=== PATIENT | male | born 1955 | race American Indian/Alaskan Native ===

== ENCOUNTER 2017-09-14 20:23 | Emergency (ER) | payer MEDICAID, OTHER ==
[2017-09-14 21:03] LABS: ANION GAP 10.9; CHLORIDE,CL 109 mmol/L (101-111); SODIUM,NA 140 mmol/L (135-145)
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
[2017-09-14] MEDS: Acetaminophen 325 MG Tab PO ONE (21:29)
== END 2017-09-14 21:43 | disposition home or self-care (01) ==
LOC: DL.ED 20:23
DX: S42.035A Nondisplaced fracture of lateral end of left clavicle, initial encounter for closed fracture (principal); F17.210 Nicotine dependence, cigarettes, uncomplicated; Z88.6 Allergy status to analgesic agent; Z79.899 Other long term (current) drug therapy; V19.3XXA Pedal cyclist (driver) (passenger) injured in unspecified nontraffic accident, initial encounter
CPT/HCPCS: 36415; 73030; 80053; 85025; 99284; A9270; G0480

== ENCOUNTER 2019-07-22 08:50 | Emergency (ER) | payer MEDICAID, OTHER ==
[2019-07-22] MEDS ORDERED: Sodium Chloride 0.9% 10 ML Syringe FLUSH PRN (10:13)
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
[2019-07-22 10:36] LABS: ANION GAP 12.8 mEq/L (7-13); CHLORIDE,CL 103 mmol/L (98-107); SODIUM,NA 141 mmol/L (136-145)
[2019-07-22] MEDS ORDERED: Silver Sulfadiazine 1% Crm 50 GM Tube TOP ONE (11:37)
== END 2019-07-22 12:02 | disposition home or self-care (01) ==
LOC: DL.ED 08:50
DX: S71.102A Unspecified open wound, left thigh, initial encounter (principal); I10 Essential (primary) hypertension; R56.9 Unspecified convulsions; F32.9 Major depressive disorder, single episode, unspecified; Z79.899 Other long term (current) drug therapy; W34.00XA Accidental discharge from unspecified firearms or gun, initial encounter
CPT/HCPCS: 36415; 80053; 83605; 85025; 86140; 87040; 87070; 87077; 87186; 99283; A9270-GY

== ENCOUNTER 2020-03-11 12:43 | Observation (INO) | payer MEDICAID, OTHER ==
[2020-03-11 13:46] LABS: ANION GAP 12.8 mEq/L (7-13); CHLORIDE,CL 100 mmol/L (98-107); SODIUM,NA 137 mmol/L (136-145)
--- NOTE | 2020-03-11 13:56 | CT ---
PROCEDURE INFORMATION: Exam: CT Head Without Contrast Exam date and time: 03/11/2020 1:40 PM Age: 64 years old Clinical indication: Walking, difficulty; Additional info: Frequent falls, head injury TECHNIQUE: Imaging protocol: Computed tomography of the head without contrast. Radiation optimization: All CT scans at this facility use at least one of these dose optimization techniques: automated exposure control; mA and/or kV adjustment per patient size (includes targeted exams where dose is matched to clinical indication); or iterative reconstruction. COMPARISON: CT HEAD 07/21/2009 1:04 AM FINDINGS: Brain: A focal hematoma is present within the right temporal region. It measures 3.3 x 1.5 1.3 cm. This corresponds to a volume of approximately 5 mL. This is in an area encephalomalacia a likely from prior surgery. Does not appear to be parenchymal in location. No additional hemorrhage is identified. No acute infarct present. Extensive postsurgical changes are present in the right temporal and parietal region. Cerebral ventricles: The ventricles and sulci are moderately prominent consistent with global volume loss/atrophy. High density involve material is present within the region of the sagittal sinus off midline toward the right. Bones/joints: Unremarkable. No acute fracture. Paranasal sinuses: Visualized sinuses are unremarkable. No fluid levels. Mastoid air cells: Visualized mastoid air cells are well aerated. Soft tissues: Unremarkable. IMPRESSION: Large area of encephalomalacia within the right temporoparietal region compatible with prior surgery. An acute hematoma is present within the area of encephalomalacia of the right temporal lobe as described. This is likely traumatic. This does not appear to be within the brain parenchyma but rather within the area of encephalomalacia of the postsurgical cavity.
[2020-03-11] MEDS ORDERED: Clindamycin HCl 150 MG Cap PO ONE (14:06)
[2020-03-11] MEDS ORDERED: Piperacillin/Tazobactam 3.375 GM in Sodium Chloride 0.9% 100 ML IV ONE (14:42)
[2020-03-11] MEDS ORDERED: Diphtheria,Pertussis(Acell),Tetanus Vaccine 0.5 ML Syringe IM ONE (14:42)
[2020-03-11] MEDS ORDERED: Sodium Chloride 0.9% 10 ML Syringe FLUSH PRN (14:42)
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
[2020-03-11] MEDS ORDERED: Ondansetron 4 MG/2 ML SDV IVPUSH PRN (15:32)
[2020-03-11] MEDS ORDERED: Docusate Sodium 100 MG Cap PO PRN (15:32)
[2020-03-11] MEDS ORDERED: Magnesium Hydroxide 400 MG/5 ML Susp 30 ML Cup PO PRN (15:32)
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
[2020-03-11] MEDS: Furosemide 40 MG Tab PO SCH (17:32)
[2020-03-11] MEDS: Heparin Sodium 5,000 Units/ML Vial SUBCUT SCH (20:52)
[2020-03-11] MEDS ORDERED: RISPERIDONE 2 MG PO SCH (21:00)
[2020-03-12] MEDS: Acetaminophen 325 MG Tab PO PRN (08:33)
[2020-03-12] MEDS: Furosemide 40 MG Tab PO SCH (08:33)
[2020-03-12] MEDS: Heparin Sodium 5,000 Units/ML Vial SUBCUT SCH (08:35)
[2020-03-12] MEDS ORDERED: Escitalopram 10 MG Tab PO SCH (09:00)
--- NOTE | 2020-03-12 10:18 | PCM.PN ---
- General Info Date of Service: 03/12/20 Admission Dx/Problem (Free Text): Admission Diagnosis/Problem Admission Diagnosis/Problem Falls Subjective Update: Ej Toro is a 64-year-old male with past medical history significant for questionable seizure disorder, depression, recurrent fall, TBI who presented to the ED via EMS for evaluation of recurrent fall. Family was actually concerned about the wellbeing of patient and called 911 to come get patient to bring him to the ED for evaluation. CT brain without contrast showed large area of encephalomalacia within the right temporoparietal region compatible with prior surgery. An acute hematoma is present within the area of encephalomalacia of the right temporal lobe as described. This is likely traumatic. This does not appear to be within the brain parenchyma but rather within the area of encephalomalacia of the postsurgical cavity. Neurosurgeon on-call at [facility] was contacted who recommended no surgical intervention. Patient was admitted for physical therapy and Occupational Therapy and also placement SNF Functional Status: Reports: Pain Controlled - Review of Systems General: Reports: No Symptoms HEENT: Reports: No Symptoms Pulmonary: Reports: No Symptoms Cardiovascular: Reports: No Symptoms Gastrointestinal: Reports: No Symptoms Genitourinary: Reports: No Symptoms Musculoskeletal: Reports: No Symptoms Skin: Reports: No Symptoms Neurological: Reports: No Symptoms Psychiatric: Reports: No Symptoms - Patient Data Vitals - Most Recent: Last Vital Signs Temp 98.8 F 03/12/20 07:47 Pulse 80 03/12/20 07:47 Resp 16 03/12/20 07:47 BP 98/64 03/12/20 07:47 Pulse Ox 100 03/12/20 07:47 Weight - Most Recent: 141 lb 8 oz I&O - Last 24 Hours: Intake & Output 03/11/20 03/12/20 03/12/20 22:59 06:59 14:59 Intake Total 50 150 Output Total 850 Balance 50 -700 Lab Results Last 24 Hours: Laboratory Results - last 24 hr 03/11/20 03/11/20 03/11/20 Range/Units 13:12 13:12 13:12 WBC 6.2 (5.0-10.0) 10^3/uL RBC 3.85 L (4.6-6.2) 10^6/uL Hgb 12.5 L D (14.0-18.0) g/dL Hct 37.2 L (40.0-54.0) % MCV 96.6 D (80-100) fL MCH 32.5 (27.0-34.0) pg MCHC 33.6 (33.0-35.0) g/dL Plt Count 189 (150-450) 10^3/uL Neut % (Auto) 52.0 (42.2-75.2) % Lymph % (Auto) 30.7 (20.5-50.1) % [place] % (Auto) 13.0 H (2-8) % Eos % (Auto) 4.1 H (1.0-3.0) % Baso % (Auto) 0.2 (0.0-1.0) % Sodium 137 (136-145) mmol/L Potassium 3.8 (3.5-5.1) mmol/L Chloride 100 (98-107) mmol/L Carbon Dioxide 28 (21-32) mmol/L Anion Gap 12.8 (7-13) mEq/L BUN 14 (7-18) mg/dL Creatinine 0.96 (0.70-1.30) mg/dL Est Cr Clr Drug Dosing 72.74 mL/min Estimated GFR (MDRD) > 60 BUN/Creatinine Ratio 14.6 (No establ ref range) Glucose 89 (74-99) mg/dL Calcium 8.7 (8.5-10.1) mg/dL Phosphorus 3.0 (2.6-4.7) mg/dL Magnesium 2.1 (1.8-2.4) mg/dL Total Bilirubin 0.5 (0.2-1.0) mg/dL AST 6 L (15-37) U/L ALT 9 L (16-63) U/L Alkaline Phosphatase 56 (46-116) U/L Total Protein 7.4 (6.4-8.2) g/dL Albumin 3.2 L (3.4-5.0) g/dL Globulin 4.2 Albumin/Globulin Ratio 0.76 TSH, Ultra Sensitive 2.70 (0.36-3.74) uIU/mL Urine Color (YELLOW) Urine Appearance (CLEAR) Urine pH (5.0-9.0) Ur Specific [place] (1.005-1.030) Urine Protein (NEGATIVE) Urine Glucose (UA) (NEGATIVE) Urine Ketones (NEGATIVE) Urine Occult Blood (NEGATIVE) Urine Nitrite (NEGATIVE) Urine Bilirubin (NEGATIVE) Urine Urobilinogen (0.2-1.0) mg/dL Ur Leukocyte Esterase (NEGATIVE) Urine RBC /HPF Urine WBC (0-5/HPF) /HPF Ur Epithelial Cells (NOT SEEN) /HPF Urine Bacteria (0-FEW/HPF) /HPF Urine Mucus (NOT SEEN) /LPF Urine Opiates Screen (NEGATIVE) Ur Oxycodone Screen (NEGATIVE) Urine Methadone Screen (NEGATIVE) Ur Barbiturates Screen (NEGATIVE) U Tricyclic Antidepress (NEGATIVE) Ur Phencyclidine Scrn (NEGATIVE) Ur Amphetamine Screen (NEGATIVE) U Methamphetamines Scrn (NEGATIVE) Urine MDMA Screen (NEGATIVE) U Benzodiazepines Scrn (NEGATIVE) Urine Cocaine Screen (NEGATIVE) U Marijuana (THC) Screen (NEGATIVE) Ethyl Alcohol < 3 (0) mg/dL SARS-CoV-2 RNA (CHANEL) (NEGATIVE) 03/11/20 03/11/20 03/11/20 Range/Units 13:39 13:39 15:20 WBC (5.0-10.0) 10^3/uL RBC (4.6-6.2) 10^6/uL Hgb (14.0-18.0) g/dL Hct (40.0-54.0) % MCV (80-100) fL MCH (27.0-34.0) pg MCHC (33.0-35.0) g/dL Plt Count (150-450) 10^3/uL Neut % (Auto) (42.2-75.2) % Lymph % (Auto) (20.5-50.1) % [place] % (Auto) (2-8) % Eos % (Auto) (1.0-3.0) % Baso % (Auto) (0.0-1.0) % Sodium (136-145) mmol/L Potassium (3.5-5.1) mmol/L Chloride (98-107) mmol/L Carbon Dioxide (21-32) mmol/L Anion Gap (7-13) mEq/L BUN (7-18) mg/dL Creatinine (0.70-1.30) mg/dL Est Cr Clr Drug Dosing mL/min Estimated GFR (MDRD) BUN/Creatinine Ratio (No establ ref range) Glucose (74-99) mg/dL Calcium (8.5-10.1) mg/dL Phosphorus (2.6-4.7) mg/dL Magnesium (1.8-2.4) mg/dL Total Bilirubin (0.2-1.0) mg/dL AST (15-37) U/L ALT (16-63) U/L Alkaline Phosphatase (46-116) U/L Total Protein (6.4-8.2) g/dL Albumin (3.4-5.0) g/dL Globulin Albumin/Globulin Ratio TSH, Ultra Sensitive (0.36-3.74) uIU/mL Urine Color [place] (YELLOW) Urine Appearance Clear (CLEAR) Urine pH 6.0 (5.0-9.0) Ur Specific [place] 1.025 (1.005-1.030) Urine Protein Trace H (NEGATIVE) Urine Glucose (UA) Negative (NEGATIVE) Urine Ketones 15 H (NEGATIVE) Urine Occult Blood Negative (NEGATIVE) Urine Nitrite Negative (NEGATIVE) Urine Bilirubin Small H (NEGATIVE) Urine Urobilinogen 4.0 H (0.2-1.0) mg/dL Ur Leukocyte Esterase Negative (NEGATIVE) Urine RBC 0-5 /HPF Urine WBC 0-5 (0-5/HPF) /HPF Ur Epithelial Cells Few (NOT SEEN) /HPF Urine Bacteria Not seen (0-FEW/HPF) /HPF Urine Mucus Occasional (NOT SEEN) /LPF Urine Opiates Screen Negative (NEGATIVE) Ur Oxycodone Screen Negative (NEGATIVE) Urine Methadone Screen Negative (NEGATIVE) Ur Barbiturates Screen Negative (NEGATIVE) U Tricyclic Antidepress Negative (NEGATIVE) Ur Phencyclidine Scrn Negative (NEGATIVE) Ur Amphetamine Screen Negative (NEGATIVE) U Methamphetamines Scrn Negative (NEGATIVE) Urine MDMA Screen Negative (NEGATIVE) U Benzodiazepines Scrn Negative (NEGATIVE) Urine Cocaine Screen Negative (NEGATIVE) U Marijuana (THC) Screen Positive H (NEGATIVE) Ethyl Alcohol (0) mg/dL SARS-CoV-2 RNA (CHANEL) Negative (NEGATIVE) Med Orders - Current: Current Medications Acetaminophen (Tylenol) 650 mg PO Q4H PRN PRN Reason: Pain (Mild 1-3)/fever Last Admin: 03/12/20 08:33 Dose: 650 mg Documented by: Docusate Sodium (Colace) 100 mg PO BID PRN PRN Reason: Constipation Escitalopram Oxalate (Lexapro) 10 mg PO DAILY KEVON Furosemide (Lasix) 40 mg PO DAILY REPLACED BY [facility] Last Admin: 03/12/20 08:33 Dose: 40 mg Documented by: Heparin Sodium (Porcine) (Heparin Sodium) 5,000 units SUBCUT Q12HR REPLACED BY [facility] Last Admin: 03/12/20 08:35 Dose: 5,000 units Documented by: Magnesium Hydroxide (Milk Of Magnesia) 30 ml PO Q12H PRN PRN Reason: Constipation Non-Formulary Medication (Divalproex Sodium) 500 mg PO BEDTIME KEVON Non-Formulary Medication (Risperidone [Risperidone]) 2 mg PO BEDTIME REPLACED BY [facility] Ondansetron HCl (Zofran) 4 mg IVPUSH Q6H PRN PRN Reason: Nausea/Vomiting Sodium Chloride (Saline Flush) 10 ml FLUSH ASDIRECTED PRN PRN Reason: Keep Vein Open Last Admin: 03/11/20 14:56 Dose: 10 ml Documented by: Discontinued Medications Clindamycin HCl (Cleocin) 300 mg PO ONETIME ONE Stop: 03/11/20 14:07 Last Admin: 03/11/20 14:14 Dose: 300 mg Documented by: Diphtheria/Tetanus/Acell Pertussis (Boostrix) 0.5 ml IM .ONCE ONE Stop: 03/11/20 14:43 Last Admin: 03/11/20 14:54 Dose: 0.5 ml Documented by: Piperacillin Sod/Tazobactam (Sod 3.375 gm/ Sodium Chloride) 100 mls @ 200 mls/hr IV ONETIME ONE Stop: 03/11/20 15:11 Last Admin: 03/11/20 14:54 Dose: 200 mls/hr Documented by: - Exam Quality Assessment: DVT Prophylaxis General: Alert, Oriented HEENT: Pupils Equal, Pupils Reactive, EOMI, Mucous Membr. Moist/[place] Neck: Supple Lungs: Clear to Auscultation, Normal Respiratory Effort Cardiovascular: Regular Rate, Regular Rhythm GI/Abdominal Exam: Normal Bowel Sounds, Soft, Non-Tender, No Organomegaly, No Distention, No Abnormal Bruit, No Mass, Pelvis Stable (Male) Exam: No Hernia, Normal Inspection, Normal Prostate, Circumcised Back Exam: Normal Inspection, Full Range of Motion Extremities: Normal Inspection, Normal Range of Motion, Non-Tender, No Pedal Edema, Normal Capillary Refill Skin: Warm, Dry, Intact Wound/Incisions: Healing Well Neurological: No New Focal Deficit Psy/Mental Status: Alert, Normal Affect, Normal Mood Sepsis Event Note - Evaluation Sepsis Screening Result: No Definite Risk - Focused Exam Vital Signs: Vital Signs Temp Pulse Resp BP Pulse Ox 03/12/20 07:47 98.8 F 80 16 98/64 100 03/12/20 00:00 97.0 F 68 18 140/73 99 - Problem List & Annotations (1) Bilateral edema of lower extremity SNOMED Code(s): 131222127, [id number], [id number] Code(s): R60.0 - LOCALIZED EDEMA Status: Acute Current Visit: Yes - Problem List Review Problem List Initiated/Reviewed/Updated: Yes - My Orders Last 24 Hours: My Active Orders 03/11/20 15:32 Ambulate [RC] ASDIRECTED Oxygen Therapy [RC] PRN VTE/DVT Education [RC] PER UNIT ROUTINE Vital Signs [RC] 00,04,08,12,16,20 OT Evaluation and Treatment [CONS] Routine PT Evaluation and Treatment [CONS] Routine Acetaminophen [TylenoL] 650 mg PO Q4H PRN Docusate Sodium [Colace] 100 mg PO BID PRN Magnesium Hydroxide [Milk of Magnesia] 30 ml PO Q12H PRN Ondansetron [Zofran] 4 mg IVPUSH Q6H PRN Resuscitation Status Routine 03/11/20 15:33 Intake and Output [RC] QSHIFT Notify Provider Vital Signs [RC] ASDIRECTED 03/11/20 15:38 Admission Diagnosis [ADT] Stat Admission Status [Patient Status] [ADT] Routine 03/11/20 15:51 Precautions [COMM] Routine 03/11/20 16:30 Furosemide [Lasix] 40 mg PO DAILY 03/11/20 Dinner Regular Diet [DIET] 03/11/20 21:00 Divalproex Sodium 500 mg PO BEDTIME Heparin Sodium 5,000 units SUBCUT Q12HR risperiDONE [risperiDONE] 2 mg PO BEDTIME 03/12/20 09:00 Escitalopram [Lexapro] 10 mg PO DAILY - Plan Plan:: #Recurrent falls #Laceration to back of head due to above CT head without contrast: An acute hematoma within the area of encephalomalacia of the right temporal lobe as described. This is likely traumatic. Neurosurgery consulted by ED provider. No intervention needed Fall precautions Physical therapy and Occupational Therapy Social work consult for SNF placement #Seizure disorder no Res continue home medication #Depression Continue home medication #Bilateral leg edema. Etiology not clear Lasix Echo when available #Marijuana use disorder Counseled to quit #General diet #Full code #Disposition: To be determined. Social work consulted
[2020-03-12] MEDS: Clindamycin HCl 150 MG Cap PO SCH ×2 (11:10→21:01)
[2020-03-12] MEDS: Divalproex Sodium Delayed-Release 250 MG Tab.CR PO SCH ×2 (11:11→21:01)
[2020-03-12] MEDS: risperiDONE 1 MG Tab PO SCH (21:01)
[2020-03-13] MEDS: Clindamycin HCl 150 MG Cap PO SCH ×3 (06:02→21:04)
[2020-03-13] MEDS: Furosemide 40 MG Tab PO SCH (08:28)
[2020-03-13] MEDS: Divalproex Sodium Delayed-Release 250 MG Tab.CR PO SCH ×2 (08:28→20:31)
[2020-03-13] MEDS: Docusate Sodium 100 MG Cap PO SCH (08:28)
--- NOTE | 2020-03-13 09:37 | PCM.PN ---
- General Info Date of Service: 03/13/20 Admission Dx/Problem (Free Text): Admission Diagnosis/Problem Admission Diagnosis/Problem Recurrent Falls Subjective Update: Ej Toro is a 64-year-old male with past medical history significant for questionable seizure disorder, depression, recurrent fall, TBI who presented to the ED via EMS for evaluation of recurrent fall. Family was actually concerned about the wellbeing of patient and called 911 to come get patient to bring him to the ED for evaluation. CT brain without contrast showed large area of encephalomalacia within the right temporoparietal region compatible with prior surgery. An acute hematoma is present within the area of encephalomalacia of the right temporal lobe as described. This is likely traumatic. This does not appear to be within the brain parenchyma but rather within the area of encephalomalacia of the postsurgical cavity. Neurosurgeon on-call at [facility] was contacted who recommended no surgical intervention. Patient was admitted for physical therapy and Occupational Therapy and also placement SNF. Patient seen and examined today. Doing okay. No new complaints. Night was uneventful. Patient requires significant assistance to get out of bed. He agrees to be placed at SNF. Social working on placement. Functional Status: Reports: Pain Controlled - Review of Systems General: Reports: No Symptoms HEENT: Reports: No Symptoms Pulmonary: Reports: No Symptoms Cardiovascular: Reports: No Symptoms Gastrointestinal: Reports: No Symptoms Genitourinary: Reports: No Symptoms Musculoskeletal: Reports: No Symptoms Skin: Reports: No Symptoms Neurological: Reports: No Symptoms Psychiatric: Reports: No Symptoms - Patient Data Vitals - Most Recent: Last Vital Signs Temp 98.5 F 03/13/20 08:15 Pulse 86 03/13/20 08:15 Resp 16 03/13/20 08:15 BP 107/68 03/13/20 08:15 Pulse Ox 99 03/13/20 08:15 Weight - Most Recent: 133 lb I&O - Last 24 Hours: Intake & Output 03/12/20 03/13/20 03/13/20 22:59 06:59 14:59 Intake Total 100 100 Output Total 300 475 Balance -200 -375 Med Orders - Current: Current Medications Acetaminophen (Tylenol) 650 mg PO Q4H PRN PRN Reason: Pain (Mild 1-3)/fever Last Admin: 03/12/20 08:33 Dose: 650 mg Documented by: Clindamycin HCl (Cleocin) 600 mg PO Q8HR [facility] Last Admin: 03/13/20 06:02 Dose: 600 mg Documented by: Divalproex Sodium (Divalproex Sodium) 500 mg PO BEDTIME [facility] Last Admin: 03/12/20 21:01 Dose: 500 mg Documented by: Divalproex Sodium (Divalproex Sodium) 1,000 mg PO DAILY [facility] Last Admin: 03/13/20 08:28 Dose: 1,000 mg Documented by: Docusate Sodium (Colace) 100 mg PO DAILY [facility] Last Admin: 03/13/20 08:28 Dose: 100 mg Documented by: Furosemide (Lasix) 40 mg PO DAILY [facility] Last Admin: 03/13/20 08:28 Dose: 40 mg Documented by: Magnesium Hydroxide (Milk Of Magnesia) 30 ml PO Q12H PRN PRN Reason: Constipation Ondansetron HCl (Zofran) 4 mg IVPUSH Q6H PRN PRN Reason: Nausea/Vomiting Polyethylene Glycol (Miralax) 17 gm PO DAILY PRN PRN Reason: Constipation Risperidone (Risperidal) 2 mg PO BEDTIME [facility] Last Admin: 03/12/20 21:01 Dose: 2 mg Documented by: Sodium Chloride (Saline Flush) 10 ml FLUSH ASDIRECTED PRN PRN Reason: Keep Vein Open Last Admin: 03/11/20 14:56 Dose: 10 ml Documented by: Discontinued Medications Clindamycin HCl (Cleocin) 300 mg PO ONETIME ONE Stop: 03/11/20 14:07 Last Admin: 03/11/20 14:14 Dose: 300 mg Documented by: Diphtheria/Tetanus/Acell Pertussis (Boostrix) 0.5 ml IM .ONCE ONE Stop: 03/11/20 14:43 Last Admin: 03/11/20 14:54 Dose: 0.5 ml Documented by: Docusate Sodium (Colace) 100 mg PO BID PRN PRN Reason: Constipation Escitalopram Oxalate (Lexapro) 10 mg PO DAILY [facility] Last Admin: 03/12/20 11:15 Dose: Not Given Documented by: Heparin Sodium (Porcine) (Heparin Sodium) 5,000 units SUBCUT Q12HR [facility] Last Admin: 03/12/20 08:35 Dose: 5,000 units Documented by: Piperacillin Sod/Tazobactam (Sod 3.375 gm/ Sodium Chloride) 100 mls @ 200 mls/hr IV ONETIME ONE Stop: 03/11/20 15:11 Last Admin: 03/11/20 14:54 Dose: 200 mls/hr Documented by: Non-Formulary Medication (Risperidone [Risperidone]) 2 mg PO BEDTIME [facility] Last Admin: 03/12/20 11:15 Dose: Not Given Documented by: - Exam Quality Assessment: DVT Prophylaxis General: Alert, Oriented HEENT: Pupils Equal, Pupils Reactive, EOMI, Mucous Membr. Moist/[place] Neck: Supple Lungs: Clear to Auscultation, Normal Respiratory Effort Cardiovascular: Regular Rate, Regular Rhythm GI/Abdominal Exam: Normal Bowel Sounds, Soft, Non-Tender, No Organomegaly, No Distention, No Abnormal Bruit, No Mass, Pelvis Stable (Male) Exam: No Hernia, Normal Inspection, Normal Prostate, Circumcised Back Exam: Normal Inspection, Full Range of Motion Extremities: Normal Inspection, Normal Range of Motion, Non-Tender, No Pedal Edema, Normal Capillary Refill Skin: Warm, Dry, Intact Wound/Incisions: Healing Well Neurological: No New Focal Deficit Psy/Mental Status: Alert, Normal Affect, Normal Mood Sepsis Event Note - Evaluation Sepsis Screening Result: No Definite Risk - Focused Exam Vital Signs: Vital Signs Temp Pulse Resp BP Pulse Ox 03/13/20 08:15 98.5 F 86 16 107/68 99 03/13/20 03:41 99 F 73 20 102/65 98 03/13/20 01:00 98.6 F 78 20 130/77 100 - Problem List & Annotations (1) Bilateral edema of lower extremity SNOMED Code(s): 972286161, 42439928, 028894766 Code(s): R60.0 - LOCALIZED EDEMA Status: Acute Current Visit: Yes - Problem List Review Problem List Initiated/Reviewed/Updated: Yes - My Orders Last 24 Hours: My Active Orders 03/12/20 10:45 polyethylene glycoL 3350 [MiraLAX] 17 gm PO DAILY PRN 03/12/20 11:00 Divalproex Sodium 1,000 mg PO DAILY clindamycin HCL [Cleocin] 600 mg PO Q8HR 03/12/20 14:26 Anticoagulation Contraindications VTE [AST] Click To Edit 03/12/20 21:00 Divalproex Sodium 500 mg PO BEDTIME risperiDONE [RisperiDAL] 2 mg PO BEDTIME 03/13/20 09:00 Docusate Sodium [Colace] 100 mg PO DAILY - Plan Plan:: #Recurrent falls #Laceration to back of head due to above CT head without contrast: An acute hematoma within the area of encephalomalacia of the right temporal lobe as described. This is likely traumatic. Neurosurgery consulted by ED provider. No intervention needed Fall precautions Continue physical therapy and Occupational Therapy Social work consulted for SNF placement #Seizure disorder no Continue home medication #Depression Continue home medication #Bilateral leg edema. Etiology not clear Improved Continue Lasix 40 mg daily Echo when available #Marijuana use disorder Counseled to quit #Physical deconditioning Continue physical therapy and Occupational Therapy #General diet #Full code #Disposition: To be determined. Social work consulted
[2020-03-13] MEDS: Polyethylene Glycol 3350 Powder 17 GM Packet PO PRN (20:31)
[2020-03-13] MEDS: risperiDONE 1 MG Tab PO SCH (20:31)
[2020-03-14] MEDS: Acetaminophen 325 MG Tab PO PRN (02:30)
[2020-03-14] MEDS: Clindamycin HCl 150 MG Cap PO SCH (05:48)
--- NOTE | 2020-03-14 09:20 | PCM.DCSUM1 ---
Discharge Summary - Hospital Course Free Text/Narrative:: 64-year-old with a history of seizure disorder, depression, traumatic brain injury presented after recurrent falling. #Recurrent falls #Laceration to back of head due to falls CT head without contrast: An acute hematoma within the area of encephalomalacia of the right temporal lobe as described. This is likely traumatic. Neurosurgery consulted by ED provider. No intervention needed Fall precautions Continue physical therapy and Occupational Therapy SNF placement #Seizure disorder Continue depakote #Depression Continue home medication #Bilateral leg edema. Etiology not clear resolved with elevation and Lasix stopped lasix - follow clinically #Marijuana use disorder Counseled to quit #Physical deconditioning Continue physical therapy and Occupational Therapy Diagnosis: Stroke: No - Discharge Data Discharge Date: 03/14/20 Discharge Disposition: DC/Tfer to SNF 03 Condition: Good - Referral to Home Health Primary Care Physician: PCP None - Patient Summary/Data Consults: Consultations 03/11/20 15:32 OT Evaluation and Treatment [CONS] Routine PT Evaluation and Treatment [CONS] Routine - Patient Instructions Diet: Heart Healthy Diet Activity: As Tolerated - Discharge Plan *PRESCRIPTION DRUG MONITORING PROGRAM REVIEWED*: Not Applicable *COPY OF PRESCRIPTION DRUG MONITORING REPORT IN PATIENT VALORIE: Not Applicable Home Medications: Home Meds Divalproex Sodium [Depakote] 1,000 mg PO DAILY 02/28/13 [History] Divalproex Sodium [Depakote] 500 mg PO BEDTIME 02/28/13 [History] Escitalopram Oxalate 10 mg PO DAILY 07/22/19 [History] risperiDONE 2 mg PO BEDTIME 07/22/19 [History] Docusate Sodium 100 mg PO DAILY 03/12/20 [History] Oxygen Therapy Mode: Room Air Forms: ED Department Discharge Referrals: PCP,Unobtain [Ordering Only Provider] - - Discharge Summary/Plan Comment DC Time >30 min.: No - General Info Date of Service: 03/14/20 Admission Dx/Problem (Free Text: Admission Diagnosis/Problem Admission Diagnosis/Problem Recurrent Falls Subjective Update: eating fairly well. Doing okay. No new complaints. Night was uneventful. Patient requires significant assistance to get out of bed. Functional Status: Reports: Pain Controlled, Tolerating Diet, Ambulating (with help) - Review of Systems General: Denies: Fever Pulmonary: Denies: Shortness of Breath Cardiovascular: Denies: Chest Pain, Edema - Patient Data Vitals - Most Recent: Last Vital Signs Temp 98.6 F 03/14/20 02:40 Pulse 91 03/14/20 02:40 Resp 18 03/14/20 02:40 BP 111/72 03/14/20 02:40 Pulse Ox 97 03/14/20 02:40 Weight - Most Recent: 129 lb 8 oz I&O - Last 24 hours: Intake & Output 03/13/20 03/14/20 03/14/20 22:59 06:59 14:59 Intake Total 0 Balance 0 Lab Results - Last 24 hrs: Laboratory Results - last 24 hr 03/14/20 Range/Units 08:25 SARS-CoV-2 RNA (CHANEL) Negative (NEGATIVE) Med Orders - Current: Current Medications Acetaminophen (Tylenol) 650 mg PO Q4H PRN PRN Reason: Pain (Mild 1-3)/fever Last Admin: 03/14/20 02:30 Dose: 650 mg Documented by: Clindamycin HCl (Cleocin) 600 mg PO Q8HR [facility] Last Admin: 03/14/20 05:48 Dose: 600 mg Documented by: Divalproex Sodium (Divalproex Sodium) 500 mg PO BEDTIME [facility] Last Admin: 03/13/20 20:31 Dose: 500 mg Documented by: Divalproex Sodium (Divalproex Sodium) 1,000 mg PO DAILY [facility] Last Admin: 03/13/20 08:28 Dose: 1,000 mg Documented by: Docusate Sodium (Colace) 100 mg PO DAILY [facility] Last Admin: 03/13/20 08:28 Dose: 100 mg Documented by: Furosemide (Lasix) 40 mg PO DAILY [facility] Last Admin: 03/13/20 08:28 Dose: 40 mg Documented by: Magnesium Hydroxide (Milk Of Magnesia) 30 ml PO Q12H PRN PRN Reason: Constipation Ondansetron HCl (Zofran) 4 mg IVPUSH Q6H PRN PRN Reason: Nausea/Vomiting Polyethylene Glycol (Miralax) 17 gm PO DAILY PRN PRN Reason: Constipation Last Admin: 03/13/20 20:31 Dose: 17 gm Documented by: Risperidone (Risperidal) 2 mg PO BEDTIME [facility] Last Admin: 03/13/20 20:31 Dose: 2 mg Documented by: Sodium Chloride (Saline Flush) 10 ml FLUSH ASDIRECTED PRN PRN Reason: Keep Vein Open Last Admin: 03/11/20 14:56 Dose: 10 ml Documented by: Discontinued Medications Clindamycin HCl (Cleocin) 300 mg PO ONETIME ONE Stop: 03/11/20 14:07 Last Admin: 03/11/20 14:14 Dose: 300 mg Documented by: Diphtheria/Tetanus/Acell Pertussis (Boostrix) 0.5 ml IM .ONCE ONE Stop: 03/11/20 14:43 Last Admin: 03/11/20 14:54 Dose: 0.5 ml Documented by: Docusate Sodium (Colace) 100 mg PO BID PRN PRN Reason: Constipation Escitalopram Oxalate (Lexapro) 10 mg PO DAILY [facility] Last Admin: 03/12/20 11:15 Dose: Not Given Documented by: Heparin Sodium (Porcine) (Heparin Sodium) 5,000 units SUBCUT Q12HR [facility] Last Admin: 03/12/20 08:35 Dose: 5,000 units Documented by: Piperacillin Sod/Tazobactam (Sod 3.375 gm/ Sodium Chloride) 100 mls @ 200 mls/hr IV ONETIME ONE Stop: 03/11/20 15:11 Last Admin: 03/11/20 14:54 Dose: 200 mls/hr Documented by: Non-Formulary Medication (Risperidone [Risperidone]) 2 mg PO BEDTIME [facility] Last Admin: 03/12/20 11:15 Dose: Not Given Documented by: - Exam General: Reports: Alert, Oriented Lungs: Reports: Decreased Breath Sounds Cardiovascular: Reports: Regular Rate Extremities: No Pedal Edema *Q Meaningful Use (DIS) - VTE *Q VTE Anticoagulation Contraindications: Med/TX Not Indicated/Need
[2020-03-14] MEDS: Docusate Sodium 100 MG Cap PO SCH (09:26)
[2020-03-14] MEDS: Furosemide 40 MG Tab PO SCH (09:26)
[2020-03-14] MEDS: Polyethylene Glycol 3350 Powder 17 GM Packet PO PRN (09:27)
[2020-03-14] MEDS: Divalproex Sodium Delayed-Release 250 MG Tab.CR PO SCH (09:27)
== END 2020-03-14 10:25 ==
LOC: DL.ED 12:43 → DL.MS 15:23
PROVIDERS: ADMIT Student in an Organized Health Care Education/Training Program; ATTEND Internal Medicine
DX: R56.9 Unspecified convulsions (principal); R29.6 Repeated falls; S01.81XA Laceration without foreign body of other part of head, initial encounter; F32.9 Major depressive disorder, single episode, unspecified; R60.0 Localized edema; F12.90 Cannabis use, unspecified, uncomplicated; Z79.899 Other long term (current) drug therapy; W19.XXXA Unspecified fall, initial encounter; Z20.822 Contact with and (suspected) exposure to COVID-19
CPT/HCPCS: 36415; 70450; 80053; 80305; 80307; 81001; 83735; 84100; 84443; 85025; 87635; 90715; 99285; A9270; J1644; J2543; J7050; U0002